=== PATIENT | female | born 1955 | race Caucasian/White ===

== ENCOUNTER → 2017-10-01 | Day surgery (SDC) | payer OTHER ==
[~2017-10-01] VITALS: Ht 157.5 cm; Wt 34.0 kg
[~2017-10-01] MED LIST: ATORVASTATIN CA10 M1 PO; NAPROSYN500 M1 PO; NORCO 5-325 TA1 EACH PO; PROAIR HFA8.5 GM INH; TRELEGY ELLIPT1 EACH INH
--- NOTE | 2017-10-01 11:47 | RADIOLOGY REPORT ---
EXAMINATION: XR PORTABLE CHEST CLINICAL INFORMATION: Status post bronchoscopy and mediastinoscopy, intraoperative image. COMPARISON: 09/04/2017. TECHNIQUE: Portable frontal view of the chest was obtained. FINDINGS: Again noted is the prominence of the right suprahilar region which was thought to represent a right hilar mass on the prior study, not significantly changed by comparison. There is hyperinflation, stable. The pulmonary apices are not well visualized due to patient positioning. No new focal areas of airspace opacification are noted. The scoliosis of the thoracolumbar spine is again noted. IMPRESSION: No new findings since the prior study of 09/04/2017. Prominence of the right suprahilar region is again noted, as reported on the previous study this is suspicious for right hilar mass.
--- NOTE | 2017-10-01 18:07 | Operative Report ---
Operative/Inv Procedure Report Surgery Date: 10/01/17 Name of Procedure: Bronchoscopy with brushings biopsy and bronchoalveolar lavage mediastinoscopy Pre-Operative Diagnosis: Mediastinal lymphadenopathy Post-Operative Diagnosis: Metastatic non-small cell carcinoma Estimated Blood Loss: scant Surgeon/Loans Consultant: Radha Rojas MD,Devan Rey Anesthesia: general endotracheal tube Operative/Procedure Note Note: After placement of monitoring lines and induction of general anesthesia a fiberoptic bronchoscopy was performed through the endotracheal tube. On the left side the endobronchial anatomy was normal. On the right side there was a clear narrowing of the anterior segmental bronchus of the right upper lobe with no obvious mass lesion. The origin of the right middle lobe bronchus was similarly narrowed with no obvious mucosal lesion. A brush was passed into the anterior segment of the right upper lobe and brushings were sent for permanent histology. Blind biopsies were then taken through the segment and no specimens were sent for permanent histology. A bronchoalveolar lavage was done into the segmental bronchus and the fluid was sent for cytology. Patient's neck and chest were then prepped and draped in a sterile fashion. A small incision was made above the sternal notch and carried down to pretracheal fascia. The posterior mediastinum was entered easily with blunt dissection. The mediastinoscope was advanced into the right paratracheal region. There was a significant amount of fibrosis and reaction and this was taken down with electrocautery and with forceps biopsies. At that point there were obvious nests of lymph nodes and outbound call center representative specimens were taken. Intraoperative frozen section showed evidence of metastatic non-small cell carcinoma. The rest of the specimens were sent for permanent histology. The lymph node bed was packed with Surgicel packing that was left behind. The wound was closed in layers with deep Vicryl suture followed by running Vicryl subcuticular suture. At the end of the procedure a repeat bronchoscopy was done to check for hemostasis. There was a little bit of oozing noted after elimination of clot and this was controlled with 1% lidocaine with epinephrine and there was very dry hemostasis at that point. The patient tolerated the procedure well and was brought to recovery room awake and extubated in stable condition. CC: Aaron YU,Noel
== END ==
LOC: STS 03:24
DX: C34.11 Malignant neoplasm of upper lobe, right bronchus or lung (principal); C77.1 Secondary and unspecified malignant neoplasm of intrathoracic lymph nodes; Z87.891 Personal history of nicotine dependence; R49.0 Dysphonia; J44.9 Chronic obstructive pulmonary disease, unspecified; R63.4 Abnormal weight loss
CPT/HCPCS: 71045; 88305; 88331; 93005; 93010; C9399; J0690; J2250